=== PATIENT | female | born 1985 ===

== ENCOUNTER 2017-11-13 16:17 | Emergency (ER) | payer MEDICAID ==
[2017-11-13 16:17] VITALS: BMI 31.6
[2017-11-13 16:50] VITALS: BP 142/83; PULSE 75; RESP 20; TEMP 99.1; O2SAT 98
--- NOTE | 2017-11-13 18:29 | ED PDOC ---
HPI: Abdomen Time Seen by Provider: 11/13/17 18:11 Chief Complaint (Nursing): Abdominal Pain Chief Complaint (Provider): Abdominal Pain/Right flank pain History Per: Patient History/Exam Limitations: no limitations Onset/Duration Of Symptoms: Days (x1 week) Outside of [place] travel?: No Current Symptoms Are (Timing): Still Present Severity: None Location Of Pain/Discomfort: RLQ Quality Of Discomfort: "Pain" Associated Symptoms: denies: Fever, Nausea, Vomiting, Diarrhea, Urinary Symptoms Exacerbating Factors: None Alleviating Factors: None Additional Complaint(s): 32 year old female with a past medical history of hypertension presents to ED complaining of abdominal pain x1 week. Denies dysuria, frequency, fever. Last menstrual period October 25. Abnormal Vaginal Bleeding: No Last Menstral Period: October 25 2017 Past Medical History Vital Signs: Last Vital Signs Temp 99.1 F 11/13/17 16:47 Pulse 75 11/13/17 16:47 Resp 20 11/13/17 16:47 BP 142/83 11/13/17 16:47 Pulse Ox 98 11/13/17 18:33 - Medical History PMH: Diabetes (during previous ), HTN (during ) - Family History Family History: States: Unknown Family Hx - Home Medications Home Medications: Ambulatory Orders Medication Instructions Recorded Vit No.126/Iron/Folic 1 tab PO DAILY 04/10/16 [Prenavite] Ibuprofen [Motrin] 600 mg PO Q6H PRN #30 tab 08/07/16 oxyCODONE/Acetaminophen [Percocet 1 ea PO Q4H PRN #30 tab 08/07/16 5/325 mg Tab] traMADol [Ultram] 50 mg PO Q8 #10 tab 11/13/17 - Allergies Allergies/Adverse Reactions: Allergies Allergy/AdvReac Type Severity Reaction Status Date / Time ibuprofen Allergy SHORTNESS Verified 11/13/17 16:47 OF BREATH Review of Systems ROS Statement: Except As Marked, All Systems Reviewed And Found Negative Constitutional: Negative for: Fever Gastrointestinal: Positive for: Abdominal Pain (and right flank pain) Genitourinary Female: Negative for: Dysuria, Frequency Physical Exam - Reviewed Nursing Documentation Reviewed: Yes Vital Signs Reviewed: Yes - Physical Exam Appears: Positive for: Non-toxic, No Acute Distress Head Exam: Positive for: ATRAUMATIC, NORMAL INSPECTION, NORMOCEPHALIC Skin: Positive for: Normal Color, Warm, Dry. Negative for: Rash Eye Exam: Positive for: Normal appearance, EOMI, PERRL ENT: Positive for: Normal ENT Inspection Neck: Positive for: Normal, Painless ROM, Supple Cardiovascular/Chest: Positive for: Regular Rate, Rhythm, Chest Non Tender. Negative for: Tachycardia Respiratory: Positive for: Normal Breath Sounds. Negative for: Wheezing, Respiratory Distress Gastrointestinal/Abdominal: Positive for: Bowel Sounds, Soft, Tenderness (mild tenderness to right lower quadrant/right flank). Negative for: Guarding, Rebound Back: Positive for: Normal Inspection. Negative for: L CVA Tenderness, R CVA Tenderness Extremity: Positive for: Normal ROM. Negative for: Tenderness, Deformity, Swelling Neurologic/Psych: Positive for: Alert, Oriented, Gait - Laboratory Results Result Diagrams: 11/13/17 18:35 11/13/17 18:35 - ECG O2 Sat by Pulse Oximetry: 98 (RA) Pulse Ox Interpretation: Normal Medical Decision Making Medical Decision Makin Initial Impression 32 y/o female presenting with abdominal pain/ right flank pain Initial plan: * CMP * Upreg * Udip * CBC * Urine Culture * US Transvaginal * Reevaluation Documented by Jodee Francis acting as a scribe for Red Christianson MD. All medical record entries made by the Scribe were at my direction and personally dictated by me. I have reviewed the chart and agree that the record accurately reflects my personal performance of the history, physical exam, medical decision making, and the department course for this patient. I have also personally directed, reviewed, and agree with the discharge instructions and disposition. Disposition - Clinical Impression Clinical Impression: Ovarian cyst - Patient ED Disposition Is Patient to be Admitted: No Counseled Patient/Family Regarding: Studies Performed, Diagnosis, Need For Followup, Rx Given - Disposition [facility] Sundar Chase DO [Staff Provider] - Disposition: Routine/Home Disposition Time: 20:45 Condition: FAIR Prescriptions: traMADol [Ultram] 50 mg PO Q8 #10 tab Instructions: Ovarian Cyst (ED) Forms: [facility] (Yi)
[2017-11-13 19:17] LABS: ALB/GLOB RATIO 1.3 (1.0-2.1); ALBUMIN 4.4 g/dL (3.5-5.0); ALT/SGPT 28 U/L (9-52); AST/SGOT 59 U/L (14-36); BLOOD UREA NITROGEN 10 mg/dl (7-17); CALCIUM 9.2 mg/dL (8.4-10.2); GFR AFRICAN-AMERICAN > 60; GFR NON-AFRICAN AMERICAN > 60
[2017-11-13 19:36] LABS: BASO % 0.4 % (0.0-2.0); EOS # 0.2 K/uL (0.0-0.7); EOS % 1.4 % (0.0-4.0); HEMOGLOBIN 12.6 g/dL (12.0-16.0); LYMPH # 2.3 K/uL (1.0-4.3); LYMPH % 21.1 % (20.0-40.0); MEAN CELL VOLUME 82.9 fl (81.0-99.0); MEAN CORPUSCULAR HEMOGLOBIN 26.8 pg (27.0-31.0); MEAN CORPUSCULAR HGB CONC 32.4 g/dL (33.0-37.0); MEAN PLATELET VOLUME 8.9 fl (7.2-11.7); MONO # 0.7 K/uL (0.0-0.8); MONO % 6.1 % (0.0-10.0); NEUT # 7.6 K/uL (1.8-7.0); RBC 4.68 Mil/uL (3.80-5.20); RED CELL DISTRIBUTION WIDTH 14.3 % (11.5-14.5); WHITE BLOOD COUNT 10.7 K/uL (4.8-10.8)
--- NOTE | 2017-11-13 20:07 | US ---
EXAM: US Pelvis, Transvaginal CLINICAL HISTORY: 32 years old, female; Pain; Pelvic pain; Additional info: Rlq pain TECHNIQUE: Real-time transvaginal pelvic ultrasound (complete) with image documentation. Transvaginal imaging was used for better evaluation of the endometrium and adnexa. COMPARISON: No relevant prior studies available. FINDINGS: Uterus/cervix: Retroverted uterus. Uterus measures 7.3 x 4.2 x 5.2 cm in size. No myometrial mass. Endometrium: 1.1 cm in thickness. Right ovary: 6.4 x 4.2 x 5.0 cm in size. 3.6 x 2.7 x 2.8 cm hypoechoic lesion with internal echoes. Small follicles. Normal flow. Left ovary: 3.0 x 1.7 x 2.9 cm in size. No mass. Small follicles. Normal flow. Free fluid: Small free fluid within pelvis. Bladder: Empty bladder which cannot be evaluated with this probe. IMPRESSION: 1. Probable hemorrhagic RIGHT ovarian cyst. Recommend sonographic followup in 6 weeks to ensure resolution and exclude other etiologies. 2. Incidental/non-acute findings are described above.
== END 2017-11-13 21:05 | disposition home or self-care (01) ==
LOC: H.ER 16:17
DX: N83.209 Unspecified ovarian cyst, unspecified side (principal); E11.9 Type 2 diabetes mellitus without complications; I10 Essential (primary) hypertension